=== PATIENT | female | born 2000 ===

== ENCOUNTER → 2024-11-07 13:59 | Outpatient (CLI) | payer OTHER ==
[2024-11-07 14:30] LABS: BASO % 0.7 % (0.1-1.2); EOS # 0.02 (0.04-0.54); EOS % 0.4 % (0.7-7.0); LYMPH # 0.94 (1.18-3.74); LYMPH % 20.7 % (19.3-53.1); MEAN CORPUSCULAR HEMOGLOBIN 27.7 pg (25.6-32.2); MONO # 0.11 (0.24-0.82); MONO % 2.4 % (4.7-12.5); NEUT # 3.42 (1.56-6.13); NEUT % 75.4 % (34.0-71.1); PLATELET COUNT 279 K/uL (163-369); RED BLOOD COUNT 4.33 M/uL (3.93-5.22); RED CELL DISTRIBUTION WIDTH 13.3 % (11.6-14.4)
[2024-11-07 14:47] LABS: COVID-19 AG NEGATIVE (NEGATIVE)
[2024-11-07 14:48] LABS: INFLUENZA A AG NEGATIVE (NEGATIVE); INFLUENZA B AG NEGATIVE (NEGATIVE)
[2024-11-07 15:27] LABS: CALCIUM 9.1 mg/dL (8.5-10.1); CREATININE SERUM 0.78 mg/dL (0.55-1.02); GFR 91.52; POTASSIUM 4.38 mEq/L (3.5-5.1)
[2024-11-07 16:15] LABS: MYCOPLASMA PNEUMONIAE IGM NON REACTIVE (NO REACTIVE)
== END | disposition home or self-care (01) ==
LOC: LAB 13:59
DX: J06.9 Acute upper respiratory infection, unspecified (principal); J22 Unspecified acute lower respiratory infection